=== PATIENT | female | born 1960 | race Hispanic/Latino ===

== ENCOUNTER 2017-02-08 13:51 | Emergency (ER) | payer MEDICAID ==
[2017-02-08 14:38] VITALS: BMI 25.0
[2017-02-08 14:44] VITALS: BP 122/76; PULSE 78; RESP 16; TEMP 97.6; O2SAT 99
--- NOTE | 2017-02-08 15:56 | ED PDOC ---
Arrival/HPI <Stef Mayfield - Last Filed: 02/08/17 16:07> - History of Present Illness Time/Duration: Prior to Arrival, < week Symptom Onset: Sudden Symptom Course: Unchanged Quality: Pressure Severity Level: 7 <Mick Dunbar - Last Filed: 02/08/17 16:23> - General Chief Complaint: Medical Clearance Time Seen by Provider: 02/08/17 14:44 - History of Present Illness Narrative History of Present Illness (Text): 02/08/17 16:14 This is a 56 year old right hand dominant female with PMH notable for COPD presenting with a left, closed clavicular fracture. The patient notes that she fell 2 days ago and sustained the injury. The patient was seen by her PMD and received a referral to orthopedics. The patient presents today for ED evaluation and additional documentation of orthopedic referral. The patient has limited motion about the shoulder 2/2 to pain. The patient denies decreased ROM about the elbow/wrist and numbness/tingling/weakness about the eblow, wrist, digits. (Mick Dunbar) Past Medical History - Provider Review Nursing Documentation Reviewed: Yes - Travel History Have you recently traveled outside [place] w/in the past 3 mons?: No - Past History Past History: Non-Contributing - Infectious Disease Hx of Infectious Diseases: None - Cardiac Hx Hypertension: Yes - Pulmonary Hx Chronic Obstructive Pulmonary Disease (COPD): Yes - Neurological Hx Neurological Disorder: No - HEENT Hx HEENT Disorder: No - Renal Hx Renal Disorder: No - Endocrine/Metabolic Hx Endocrine Disorders: No - Hematological/Oncological Hx Blood Transfusions: No Hx Blood Transfusion Reaction: No - Integumentary Hx Dermatological Disorder: No - Musculoskeletal/Rheumatological Hx Musculoskeletal Disorders: No Hx Falls: No - Gastrointestinal Hx Gastrointestinal Disorders: No - Genitourinary/Gynecological Hx Genitourinary Disorders: Yes Other/Comment: Endometrious - Psychiatric Hx Depression: Yes Hx Physical Abuse: No Hx Sexual Abuse: No Hx Substance Use: No - Past Surgical History Past Surgical History: No Previous - Anesthesia Hx Anesthesia: Yes Hx Anesthesia Reactions: No Hx Malignant Hyperthermia: No - Suicidal Assessment Feels Threatened In Home Enviroment: No <Mick Dunbar - Last Filed: 02/08/17 16:23> Family/Social History - Physician Review Nursing Documentation Reviewed: Yes Family/Social History: No Known Family HX Smoking Status: Heavy Smoker > 10 Cigarettes Daily Hx Alcohol Use: Yes (Binge Drinker: pints of vodka daily when binging- last binge 2 weeks ago) Frequency of alcohol use: Few days per week Hx Substance Use: No Hx Substance Use Treatment: No <Mick Dunbar - Last Filed: 02/08/17 16:23> Allergies/Home Meds <Stef Mayfield - Last Filed: 02/08/17 16:07> <Mick Dunbar - Last Filed: 02/08/17 16:23> Allergies/Adverse Reactions: Allergies No Known Allergies Allergy (Verified 02/08/17 14:38) Home Medications: Home Meds Medication Instructions Recorded Confirmed Sertraline HCl [Zoloft] 50 mg PO DAILY 05/07/15 11/04/15 Review of Systems - Physician Review All systems were reviewed & negative as marked: Yes - Review of Systems Constitutional: absent: Fatigue Eyes: absent: Photophobia, Eye Pain ENT: absent: Hearing Changes, Tinnitus Respiratory: absent: SOB, Cough Cardiovascular: absent: Chest Pain, Palpitations, Syncope Gastrointestinal: absent: Abdominal Pain, Constipation, Nausea, Vomiting Genitourinary Female: absent: Dysuria, Frequency Musculoskeletal: Arthralgias, Joint Swelling, Myalgias. absent: Back Pain, Neck Pain Skin: Other (Ecchymosis left shoulder). absent: Rash, Pruritis, Cellulitis Neurological: absent: Headache, Dizziness Endocrine: absent: Diaphoresis Hemo/Lymphatic: absent: Adenopathy Psychiatric: absent: Anxiety <Mick Dunbar - Last Filed: 02/08/17 16:23> Physical Exam Vital Signs Reviewed: Yes Temperature: Afebrile Blood Pressure: Normal Pulse: Regular Respiratory Rate: Normal Appearance: Positive for: Well-Appearing, Non-Toxic, Comfortable Pain Distress: None Mental Status: Positive for: Alert and Oriented X 3 - Systems Exam Head: Present: Atraumatic, Normocephalic Pupils: Present: PERRL Extroacular Muscles: Present: EOMI Conjunctiva: Present: Normal Mouth: Present: Moist Mucous Membranes. No: Drooling Neck: Present: Normal Range of Motion. No: MIDLINE TENDERNESS Respiratory/Chest: Present: Clear to Auscultation, Good Air Exchange. No: Respiratory Distress, Accessory Muscle Use Cardiovascular: Present: Regular Rate and Rhythm, Normal S1, S2. No: Murmurs Abdomen: Present: Normal Bowel Sounds. No: Tenderness, Distention, Peritoneal Signs Upper Extremity: Present: Edema, NORMAL PULSES, Tenderness (left shoulder and clavicular region), Swelling (left shoulder ecchymosis), Neurovascularly Intact , Capillary Refill < 2s, Deformity (left clavicular step off), Other (AIN/PIN/ Median/Radial/Ulnar Nerves intact with 5/5 strength and sensation through all distal dermatomes). No: Normal Inspection, Cyanosis, Normal ROM (full ar elbow/ wrist/digits, decreased PROM about shoulder 2/2 to pain), Erythema Lower Extremity: Present: Normal Inspection. No: Edema Neurological: Present: GCS=15, CN II-XII Intact, Speech Normal Skin: Present: Warm, Dry, Normal Color. No: Rashes Psychiatric: Present: Alert, Oriented x 3 <Mick Dunbar - Last Filed: 02/08/17 16:23> Vital Signs Temp Pulse Resp BP Pulse Ox 02/08/17 14:42 97.6 F 78 16 122/76 99 Medical Decision Making <Stef Mayfield - Last Filed: 02/08/17 16:07> - RAD Interpretation Film Processing Utility Worker: ED Physician <Mick Dunbar - Last Filed: 02/08/17 16:23> ED Course and Treatment: 02/08/17 16:07 Patient with L clavicle fx - CD viewed that patient provided. No skin tenting - ok for d/c in sling and f/u ortho. Patient's attending had sent her to the ED for ortho eval here, but no indication for emergent ortho eval in the ED - will d/c. (Stef Mayfield) 02/08/17 16:19 Impression: This is a 56 year old right hand dominant female with PMH notable for COPD presenting with a left, closed clavicular fracture. The patient has a defined clavicular fracture on XR. The patient is presenting for orthopedic referral Differential: Clavicular Fracture Plan: Sling Immobilization Orthopedics Referral Pain Control Progress Note: patient seen and examined at the bedside. Patient in pain 2/2 to left closed clavicular feracture. The patient has brought CD from outpatient XR. The images were reviewed. A displaced left clavicular fracture was visualized. The patient has not been immobilized in a sling since the fall. The patient was immobilized in a sling prior to discharge. Pain medicatoin was provided on discharge. The patient was provided referral to orthopedics on discharge. The patient was instructed to f/u with PMD and ortho on DC. The patient was agreeable with the plan. The patient was medically stable for DC. (Mick Dunbar) - RAD Interpretation Narrative RAD Interpretations (Text): 02/08/17 16:22 Outpatient XR CD: Left, displaced clavicular fracture (Mick Dunbar) - PA / MILKING MACHINE OPERATOR / Resident Statement SHAYNE has reviewed & agrees with the documentation as recorded. SHAYNE has examined the patient and agrees with the treatment plan. <Stef Mayfield - Last Filed: 02/08/17 16:07> Disposition/Present on Arrival - Present on Arrival Any Indicators Present on Arrival: No <Stef Mayfield - Last Filed: 02/08/17 16:07> - Present on Arrival Any Indicators Present on Arrival: No History of DVT/PE: No History of Uncontrolled Diabetes: No Urinary Catheter: No History of Decub. Ulcer: No History Surgical Site Infection Following: None - Disposition Have Diagnosis and Disposition been Completed?: Yes Disposition Time: 15:30 Patient Plan: Discharge <Mick Dunbar - Last Filed: 02/08/17 16:23> - Disposition Diagnosis: Fracture of clavicular shaft, left, closed Disposition: HOME/ ROUTINE Condition: FAIR Discharge Instructions (ExitCare): Clavicle Fracture (ED), How to Stop Smoking (ED) Print Language: PUERT[place] RICAN Additional Instructions: 1.) Keep arm immobilized in sling 2.) Follow up with PMD within 48 hours 3.) Follow up with Orthopedics within 48 hours 4.) Ice the area 20mins every 2 hours 5.) If symptoms return please return to the ED for evaluation 6.) Take pain medication as needed in accordance with prescription Prescriptions: oxyCODONE/Acetaminophen [Percocet 5/325 mg Tab] 1 tab PO Q6H PRN #20 tab PRN Reason: Pain, Severe (8-10) Referrals: Azucena Mayberry DO [Primary Care Provider] - Follow up with primary Frandy Harman MD [Staff Provider] - Follow up with primary [facility] [Outside] - Follow up with primary
== END 2017-02-08 16:12 | disposition home or self-care (01) ==
LOC: ED 13:51
DX: S42.022D Displaced fracture of shaft of left clavicle, subsequent encounter for fracture with routine healing (principal); W01.0XXD Fall on same level from slipping, tripping and stumbling without subsequent striking against object, subsequent encounter